=== PATIENT | female | born 1965 | race Caucasian/White ===

== ENCOUNTER → 2016-11-20 12:42 | Outpatient (CLI) | payer OTHER ==
[~2016-11-20 12:42] MED LIST: ATIVAN0.5 MG PO; FISH OIL 1,0001 CA1 PO; GEMFIBROZIL600 MG PO; LIPITOR80 MG PO; LISINOPRIL10 MG PO; METOPROLOL TART50 MG PO; NEURONTIN 300300 MG PO; PLAVIX75 MG PO; TRADJENTA5 MG PO
[2016-12-25 08:15] VITALS: BMI 21.5
== END | disposition home or self-care (01) ==
LOC: D.CT 12:42
DX: I70.211 Atherosclerosis of native arteries of extremities with intermittent claudication, right leg (principal)

== ENCOUNTER 2016-12-10 05:26 | Outpatient (CLI) | payer MEDICARE, MEDICAID ==
[~2016-12-10] VITALS: Ht 177.8 cm; Wt 68.2 kg
--- NOTE | ~2016-12-10 | HEMODYNAMI ---
PATIENT:STEPAN AHUJA MEDICAL RECORD: [id number] : 61 LOCATION:SUE ADMISSION DATE: 12/10/16 Generatedon:12/10/20169:43 Patient name: STEPAN AHUJA Patient #: [id number] SSN: D OB: 1965 Date of study: 12/10/2016 Page: Of Hemodynamic Procedure Report Patient Data Patient Demographics Procedure consent was obtained First Name: STEPAN Gender: Female Last Name: LEIGHA : 1965 Middle Initial: ANA MARIA Age: 51 year(s) Patient #: [id number] Race: Unknown Additional ID: [id number] Contact details [address]: [address] [place] [address] State: [place] City: [place] Zip code: [address] Past Medical History Allergies Allergen Reaction Date Comments Reported Aspirin 12/10/2016 Sulfa drugs 12/10/2016 Admission Admission Data Admission Date: 12/10/2016 Admission Time: 5:26 Weight (lbs.): 150 Weight (kg.): 68.04 Procedure Procedure Types Cath Procedure Peripheral Cath Diagnostic Procedure Abd/Extremity Extremities Right Lower Ext Arterio Procedure Description Procedure Date Procedure Date: 12/10/2016 Procedure Start Time: 8:15 Procedure Staff Name Function Chris Odom MD Performing Physician Joshua Wang RT Scrub Racheal Jones RN Nurse Silvana Gan RT Cigar Head Pegger Silvana Gan RT Monitor Procedure Data Cath Procedure Fluoroscopy Diagnostic fluoroscopy Total fluoroscopy Time: time: 14.6 min 14.6 min Diagnostic fluoroscopy Total fluoroscopy dose: 586 dose: 586 mGy mGy Contrast Material Contrast Material Type Amount (ml) Isovue 300 75 Entry Location Entry Primary Successful Side Size Upsize Upsize Entry Closure Succes sful Closure Location (Fr) 1 (Fr) 2 (Fr) Remarks Device Remarks Femoral Left 5 Fr artery Femoral Exoseal artery Diagnostic catheters Device Type Used For End Catheter Placement Diagnostic 5Fr IMT Catheter Procedure Medications Medication Administration Route Dosage Versed I.V. 1 mg Fentanyl I.V. 50 mcg Versed I.V. 1 mg Fentanyl I.V. 50 mcg Versed I.V. 1 mg Fentanyl I.V. 50 mcg Benadryl I.V. 50 mg Heparin Bolus I.V. 4000 units Versed I.V. 1 mg Fentanyl I.V. 50 mcg Lidocaine 1% added to field 20 Heparin Flush Bag added to field 3 bags (1000units/500ml NS) Oxygen NC 3 l/min Nitroglycerin IC/IA I.A. 200 mcg Fentanyl I.V. 50 mcg Versed I.V. 1 mg Fentanyl I.V. 50 mcg Versed I.V. 1 mg Hemodynamics Rest Heart Rate: 62 (bpm) Snapshots Pre Cath Intra NCS Post Cath Vital Signs Time Heart Resp SPO2 NIBP (mmHg) Rhythm Pain Status Sedation Rate (ipm) (%) Level (bpm) 7:50:19 63 11 98 179/88(141) NSR 0 (11) , No 10(A) pain 7:54:33 67 15 98 182/91(138) NSR 0 (11) , No 10(A) pain 7:59:32 70 12 97 Measuring NSR 0 (11) , No 10(A) pain 7:59:46 67 12 96 171/91(149) NSR 0 (11) , No 10(A) pain 8:04:06 65 13 96 168/85(135) NSR 0 (11) , No 10(A) pain 8:08:24 65 13 96 159/83(128) NSR 0 (11) , No 10(A) pain 8:12:41 65 11 94 155/80(126) NSR 6 (11) , 10(A) Intense 8:16:57 67 16 94 136/79(102) NSR 5 (11) , 10(A) Very distressing 8:21:06 61 12 94 132/74(105) NSR 5 (11) , 10(A) Very distressing 8:25:16 64 12 97 134/69(106) NSR 5 (11) , 9(A) Very distressing 8:29:26 54 14 96 113/69(104) NSR 3 (11) , 9(A) Tolerable 8:33:32 58 13 95 94/60(69) NSR 0 (11) , No 9(A) pain 8:37:34 53 12 98 92/51(61) NSR 0 (11) , No 9(A) pain 8:41:38 53 14 98 70/46(55) NSR 0 (11) , No 9(A) pain 8:43:49 58 12 98 97/52(75) NSR 0 (11) , No 9(A) pain 8:47:52 53 11 98 115/56(90) NSR 0 (11) , No 9(A) pain 8:52:00 51 14 98 111/59(82) NSR 0 (11) , No 9(A) pain 8:56:06 50 15 100 115/62(82) NSR 0 (11) , No 9(A) pain 9:00:12 50 14 97 99/62(81) NSR 0 (11) , No 9(A) pain 9:04:11 50 12 99 110/64(94) NSR 0 (11) , No 9(A) pain 9:08:15 48 13 100 120/67(102) NSR 5 (11) , 9(A) Very distressing 9:12:21 51 13 98 119/66(96) NSR 0 (11) , No 9(A) pain 9:16:25 48 11 99 126/70(105) NSR 0 (11) , No 9(A) pain 9:20:33 49 10 100 126/67(102) NSR 0 (11) , No 9(A) pain 9:25:31 56 15 99 121/64(0) NSR 0 (11) , No 9(A) pain 9:25:40 56 14 99 129/73(105) NSR 0 (11) , No 9(A) pain 9:29:54 51 11 98 107/56(76) NSR 0 (11) , No 9(A) pain 9:33:59 48 21 98 87/55(66) NSR 0 (11) , No 9(A) pain 9:37:59 48 12 97 91/50(66) NSR 0 (11) , No 9(A) pain 9:42:01 49 15 97 91/49(66) NSR 0 (11) , No 9(A) pain Medications Time Medication Route Dose Verified Delivered Reason Notes Effectiveness by by 8:00:22 Heparin Flush added 3 Racheal Racheal used for Bag to bags King BRENDA Jones health occupations teacher (1000units/500ml field NS) 8:00:36 Lidocaine 1% added 20ml Racheal Racheal for local to vial King BRENDA Jones RN anesthetic field 8:05:50 Oxygen NC 3 Racheal Racheal Per protocol l/min King BRENDA Jones RN 8:06:55 Fentanyl I.V. 50 Racheal Racheal for sedation mcg King BRENDA Jones RN 8:07:00 Versed I.V. 1 mg Racheal Racheal for sedation King BRENDA Jones RN 8:11:49 Versed I.V. 1 mg Racheal Racheal for sedation King BRENDA Jones RN 8:11:58 Fentanyl I.V. 50 Racheal Racheal for sedation mcg King BRENDA Jones RN 8:18:03 Versed I.V. 1 mg Racheal Racheal for sedation King BRENDA Jones RN 8:18:14 Fentanyl I.V. 50 Racheal Racheal for sedation mcg King BRENDA Jones RN 8:23:49 Versed I.V. 1 mg Racheal Racheal for sedation King BRENDA Jones RN 8:23:55 Fentanyl I.V. 50 Racheal Racheal for sedation mcg King BRENDA Jones RN 8:24:01 Benadryl I.V. 50 mg Racheal Racheal for sedation King BRENDA Jones RN 8:29:02 Heparin Bolus I.V. 4000 Racheal Racheal for units King BRENDA Jones RN anticoagulation 8:58:22 Nitroglycerin I.A. 200 Racheal Chris IC/IA mcg Robert BRENDA Odom MD 9:12:00 Fentanyl I.V. 50 Racheal Racheal for sedation mcg King BRENDA Jones RN 9:12:13 Versed I.V. 1 mg Racheal Racheal for sedation King BRENDA Jones RN 9:24:40 Fentanyl I.V. 50 Racheal Racheal for sedation [facility] King BRENDA Jones RN 9:25:48 Versed I.V. 1 mg Racheal Racheal for sedation King BRENDA Jones deputy commissioner Log Time Note 7:41:19 Patient Weight : 150 kg 7:41:51 Time tracking: Regular hours 7:42:32 Plan of Care:Hemodynamics will remain stable., Cardiac rhythm will remain stable., Comfort level will be maintained., Respiratory function will remain adequate., Patient/ family verbilizes understanding of procedure., Procedure tolerated without complication., Recovers from procedure without complications.. 7:45:56 Use device set IR Diagnostic 7:45:58 Sterile Angiographic Pack opened to sterile field. 7:45:59 Bag Decanter opened to sterile field. 7:46:01 Acist Manifold opened to sterile field. 7:46:02 Acist Hand Control opened to sterile field. 7:46:03 Acist Syringe opened to sterile field. 7:46:04 Cook BENTSON 145cm guide wire opened to sterile field. 7:46:05 St Jose 5FR Sheath opened to sterile field. 7:46:06 Micropuncture VSI 4FR kit opened to sterile field. 7:46:45 Patient received from Outpatients to IR Alert and oriented. Tansferred to table in Supine position. 7:46:48 Correct patient and procedure confirmed by team. 7:46:51 Signed procedure consent form obtained from patient. 7:46:53 7:47:00 H&P Date Dictated: 12/10/2016 Within 30 days and on chart.. 7:47:03 Pre-procedure instructions explained to patient. 7:47:03 Pre-op teaching completed and patient verbalized understanding. 7:47:06 Family in waiting room. 7:47:08 Patient NPO since Midnight. 7:47:27 Patient allergic to Aspirin 7:47:54 Patient allergic to Sulfa drugs 7:48:02 Is the patient allergic to Iodine/contrast media? No. 7:48:06 Is patient on blood thinner?No 7:48:12 Patient diabetic? No. 7:48:27 7:48:29 ----Pre-sedation anethsthesia assessment.---- 7:48:33 Previous problem with sedation/anesthesia? No ? 7:48:37 Snore? Yes 7:48:39 Sleep apnea? No 7:48:41 Deviated septum? No 7:48:44 Opens mouth fully? Yes 7:48:47 Sticks out tongue? Yes 7:48:51 Airway obstruction? No ? 7:48:55 Dentures? No ? 7:48:59 7:49:09 ECG and BP/O2 sat monitors applied to patient. 7:49:11 Vital chart was started 7:49:13 Baseline sample Acquired. 7:49:16 Full Disclosure recording started 7:49:17 7:49:31 IV patent on arrival in left forearm with 0.9% NaCl at [facility]. 7:49:42 Left groin area was prepped with chlora-prep and draped in sterile fashion 7:51:02 Pre procedure: right dorsailis pedis pulse 0-Absent 7:51:08 Pre procedure: left dorsailis pedis pulse Doppler 7:51:15 Pre procedure: right posterior tibial pulse Doppler 7:51:22 Pre procedure: left posterior tibial pulse Doppler 8:00:22 Heparin Flush Bag (1000units/500ml NS) 3 bags added to field was given by Racheal Jones RN; used for procedure; 8:00:36 Lidocaine 1% 20ml vial added to field was given by Racheal Jones RN; for local anesthetic; 8:05:50 Oxygen 3 l/min NC was given by Racheal Jones RN; Per protocol; 8:06:18 A Diagnostic 5Fr IMT Catheter was advanced over the wire and used for . 8:06:38 Alarms reviewed by R. N. 8:06:39 Sharps counted by scrub and verified by Иван 8:06:39 8:06:41 Physician arrived 8:06:55 Fentanyl 50 mcg I.V. was given by Racheal Jones RN; for sedation; 8:07:00 Versed 1 mg I.V. was given by Racheal Jones RN; for sedation; 8:10:26 --------ALL STOP TIME OUT------ 8:10:27 Final Timeout: patient, procedure, and site verified with staff and physician. All members of the team are in agreement. 8:11:17 Sedation plan: IV Moderate Sedation Versed, Fentanyl 8:11:38 Physical assessment completed. ASA score P 2 - A patient with mild systemic disease as per Chris Odom MD. 8:11:49 Versed 1 mg I.V. was given by Racheal Jones RN; for sedation; 8:11:58 Fentanyl 50 mcg I.V. was given by Racheal Jones RN; for sedation; 8:15:03 Procedure started. 8:15:09 Local anesthetic to left femerol artery with Lidocaine 1% by Chris Odom MD.INITIAL ACCESS ONLY 8:15:41 Arterial access obtained using ultrasound guidance. 8:15:56 A 5 Fr sheath was inserted into the Left Femoral artery 8:18:03 Versed 1 mg I.V. was given by Racheal Jones RN; for sedation; 8:18:14 Fentanyl 50 mcg I.V. was given by Racheal Jones RN; for sedation; 8:23:49 Versed 1 mg I.V. was given by Racheal Jones RN; for sedation; 8:23:55 Fentanyl 50 mcg I.V. was given by Racheal Jones RN; for sedation; 8:24:01 Benadryl 50 mg I.V. was given by Racheal Jones RN; for sedation; 8:29:02 Heparin Bolus 4000 units I.V. was given by Racheal Jones RN; for anticoagulation; 8:30:53 Terumo 6Fr Edwards Destination Sheath opened to sterile field. 8:30:53 Cook BRIDGES 260 guide wire opened to sterile field. 8:30:[address] .035 145 glide wire opened to sterile field. 8:30:55 CXI Catheter 90cm opened to sterile field. 8:52:16 [place] Sci Choice PT Floppy Straight 300cm 0.014 g opened to sterile field. 8:52:27 Turbohawk 1 Small Atherectomy catheter opened to sterile field. 8:54:11 BasixTOUCH Inflation Syringe opened to sterile field. 8:58:22 Nitroglycerin IC/IA 200 mcg I.A. was given by Chris Odom MD; ; 9:12:00 Fentanyl 50 mcg I.V. was given by Racheal Jones RN; for sedation; 9:12:13 Versed 1 mg I.V. was given by Racheal Jones RN; for sedation; 9:18:55 Inflation number: 1 A IN.PACT Admiral 5.0 x 120 x 135 DCB Balloon was prepped and advanced across the Undefined1, then inflated to 10 SREEKANTH for 2:09 (min:sec). 9:24:40 Fentanyl 50 mcg I.V. was given by Racheal Jones RN; for sedation; 9:25:48 Versed 1 mg I.V. was given by Racheal Jones RN; for sedation; 9:29:35 St Ojse 6Fr sheath opened to sterile field. 9:31:36 Cordis 6Fr Exoseal opened to sterile field. 9:34:50 Sheath removed intact; hemostasis achieved with Exoseal to the Femoral artery. 9:34:50 A sheath was inserted into the Femoral artery 9:35:00 Procedure ended.(Physican Out) 9:35:20 Fluoroscopy time 14.60 minutes. 9:35:26 Fluoroscopy dose: 586 mGy 9:35:26 Flurop Dose total: 586 9:35:47 Contrast amount:Isovue 300 75ml. 9:35:49 Procedure and supply charges have been captured, reviewed, submitted and are correct. 9:40:18 Report given to Outpatients. 9:40:21 Patient transfered to Outpatients with Bed. 9:43:47 Vital chart was stopped Intervention Summary Intervention Notes Time ActionType Lesion and Equipment Action# Pressure Duration Attributes Used 9:18:55 Inflate Undefined1 IN.PACT 1 10 02:09 balloon Admiral 5.0 x 120 x 135 DCB Balloon Device Usage Item Name Manufacture Quantity Catalog Number [facility] Lot# / Charge Number Stock Stock Serial# Code Sterile Cardinal 1 [id number] 5 Angiographic Health Pack Bag Decanter Microtek 1 2002S 305206 11910 364837 5 Medical Inc. Acist Acist 1 99939 585641 886437 175798 5 Manifold Medical Systems Inc Acist Hand Acist 1 14643 788399 867075 749647 5 Control Medical Systems Inc Acist Syringe Acist 1 44661 585002 091170 750393 20 Medical Systems Inc [facility] Friendly Wager App [facility] 1 [id number] 156141 791499 [id number] wire [address] Jose 5FR St Jose 1 879635 388476 088242 5 [id number] Sheath Micropuncture VSI VASCULAR 1 7266V 327866 064734 5 VSI 4FR kit SOLUTIONS [facility] [place] 1 [id number] 709611 603723 63370 5 5Fr IMT Scientific Catheter Terumo 6Fr Terumo 1 RSR01 271065 87480 940807 5 Edwards Destination Sheath Friendly Wager App [facility] Friendly Wager App [facility] 1 [id number] 790545 482565 5 [id number] 260 guide wire [facility] 1 A54080 815139 237647 5 [id number] ROADRUNNER .035 145 glide wire CXI Catheter Friendly Wager App [facility] 1 U32156 568940 132161 479319 5 [id number] 90cm [place] [facility] [place] 1 [id number] 689834 330360 637649 5 Choice PT Scientific Floppy Straight 300cm 0.014 g Turbohawk 1 Ev3 1 H1-S 349133 3346695 712150 5 Small Atherectomy catheter BasixTOUCH Merit 1 AN7103 062994 665998 956255 5 [id number] Inflation Medical Syringe IN.PACT Medtronic 1 [id number] 767996 918015 183969 5 Admiral 5.0 x 120 x [address] Jose [address] St Jose 1 437560 107199 496443 5 [id number] sheath Cordis 6Fr Cardinal 1 EX600 418663 335675 264405 10 [id number] [facility] Signature Audit [place] Stage Time Signature Unsigned Intra-Procedure 12/10/2016 Joshua 9:43:44 AM Kathleen RT (R) (CV) Signatures Monitor : Silvana Gan RT Signature : Date : Time : [place] [id number] [place] [address]
[2016-12-10] MEDS ORDERED: GEMFIBROZIL600 MG PO (06:25)
[2016-12-10] MEDS ORDERED: METOPROLOL TART50 MG PO (06:26)
[2016-12-10] MEDS ORDERED: LIPITOR80 MG PO (06:26)
[2016-12-10] MEDS ORDERED: TRADJENTA5 MG PO (06:26)
[2016-12-10] MEDS ORDERED: NEURONTIN 300300 MG PO (06:27)
[2016-12-10] MEDS ORDERED: LISINOPRIL10 MG PO (06:27)
[2016-12-10] MEDS ORDERED: FISH OIL 1,0001 CA1 PO (06:28)
[2016-12-10] MEDS ORDERED: ATIVAN0.5 MG PO (06:28)
[2016-12-10 06:36] LABS: BASOPHILS 0.3 % (0.0-2.0); EOSINOPHILS 6.3 % (0-7); HEMATOCRIT 35.9 % (36.0-48.0); HEMOGLOBIN 11.9 g/dL (12-16); IMMATURE GRANULOCYTES 0.4 % (0-5); LYMPHOCYTES 39.1 % (15-50); MCH 30.4 pg (26.0-34.0); MCHC 33.1 g/dL (31.0-37.0); MCV 91.6 fL (80.0-100.0); MEAN PLATELET VOLUME 9.7 fL (7.4-10.4); MONOCYTES 7.2 % (2-11); NEUTROPHILS 46.7 % (40-80); PLATELET COUNT 264 10x3/uL (130-400); RBC 3.92 10x6/uL (4.00-5.40); RDW 14.8 % (11.5-14.5); WBC 9.9 10x3/uL (4.8-10.8)
[2016-12-10 06:37] VITALS: BP 127/64; Ht 177.8 cm; Wt 68.2 kg
[2016-12-10 06:52] LABS: APTT 27.8 SECONDS (22.8-39.4); INR 1.02 (0.85-1.17); PROTIME 13.3 SECONDS (11.6-15.0)
[2016-12-10 06:53] LABS: ANION GAP 15.4 mmol/L (8-16); CALCIUM 9.8 mg/dL (8.5-10.1); CARBON DIOXIDE 23.8 mmol/L (21.0-32.0); CREATININE - SERUM 0.9 mg/dL (0.6-1.3); POTASSIUM - SERUM 5.2 mmol/L (3.5-5.1)
--- NOTE | 2016-12-10 10:50 | NUR ---
1000 SEE POST PROCEDURE SHEET FOR ALL VITAL SIGNS
== END 2016-12-10 14:15 | disposition home or self-care (01) ==
LOC: D.OPS 05:26 → D.SP 08:00 → D.OPS 08:00
PROVIDERS: Radiology Diagnostic Radiology
DX: I70.211 Atherosclerosis of native arteries of extremities with intermittent claudication, right leg (principal)

== ENCOUNTER 2016-12-25 06:41 | Outpatient (CLI) | payer MEDICARE, MEDICAID ==
[~2016-12-25] VITALS: Ht 177.8 cm; Wt 68.2 kg
--- NOTE | ~2016-12-25 | HEMODYNAMI ---
PATIENT:STEPAN AHUJA MEDICAL RECORD: [id number] : 61 LOCATION:SUE ADMISSION DATE: 12/25/16 Generatedon:12/25/201611:34 Patient name: STEPAN AHUJA Patient #: [id number] SSN: D OB: 1965 Date of study: 12/25/2016 Page: Of Hemodynamic Procedure Report Patient Data Patient Demographics Procedure consent was obtained First Name: STEPAN Gender: Female Last Name: LEIGHA : 1965 Middle Initial: ANA MARIA Age: 51 year(s) Patient #: [id number] Race: Unknown Additional ID: [id number] Contact details [address]: [address] [place] [address] State: [place] City: [place] Zip code: [address] Past Medical History Allergies Allergen Reaction Date Comments Reported Aspirin 12/10/2016 Sulfa drugs 12/10/2016 Aspirin 12/25/2016 Sulfa drugs 12/25/2016 Admission Admission Data Admission Date: 12/25/2016 Admission Time: 6:41 Weight (lbs.): 150 Weight (kg.): 68.04 Procedure Procedure Types Cath Procedure Peripheral Cath Diagnostic Procedure Cath Peripheral Abd/Extremity Extremities Left Lower Ext Arterio Procedure Description Procedure Date Procedure Date: 12/25/2016 Procedure Start Time: 10:01 Procedure Staff Name Function Chris Odom MD Performing Physician Joshua Wang RT Scrub Racheal Jones RN Nurse Kimberly Arnold RN Nurse Silvana Gan RT Monitor Procedure Data Cath Procedure Fluoroscopy Diagnostic fluoroscopy Total fluoroscopy Time: time: 13.5 min 13.5 min Diagnostic fluoroscopy Total fluoroscopy dose: 173 dose: 173 mGy mGy Contrast Material Contrast Material Type Amount (ml) Isovue 300 55 Entry Location Entry Primary Successful Side Size Upsize Upsize Entry Closure Succes sful Closure Location (Fr) 1 (Fr) 2 (Fr) Remarks Device Remarks Femoral Right 5 Fr artery Femoral Mynx artery Resistor Inspector 6Fr/7Fr Diagnostic catheters Device Type Used For End Catheter Placement Diagnostic 5Fr IMT Catheter Procedure Medications Medication Administration Route Dosage Fentanyl I.V. 50 mcg Versed I.V. 1 mg Fentanyl I.V. 50 mcg Versed I.V. 1 mg Versed I.V. 1 mg Fentanyl I.V. 50 mcg Benadryl I.V. 50 mg Heparin Bolus I.V. 4000 units Nitroglycerin IC/IA I.A. 200 mcg Fentanyl I.V. 50 mcg Versed I.V. 1 mg Fentanyl I.V. 25 mcg Fentanyl I.V. 25 mcg Hemodynamics Rest Heart Rate: 57 (bpm) Snapshots Pre Cath Intra NCS Post Cath Vital Signs Time Heart Resp SPO2 NIBP (mmHg) Rhythm Pain Status Sedation Rate (ipm) (%) Level (bpm) 9:46:46 61 14 98 147/74(113) NSR 0 (11) , No 10(A) pain 9:51:51 56 11 100 136/72(110) NSR 0 (11) , No 10(A) pain 9:56:01 58 12 100 147/71(115) NSR 0 (11) , No 10(A) pain 10:00:15 58 21 100 139/70(122) NSR 0 (11) , No 10(A) pain 10:04:31 66 16 100 137/66(109) NSR 0 (11) , No 10(A) pain 10:08:37 64 17 99 141/83(96) NSR 0 (11) , No 10(A) pain 10:12:48 58 13 96 101/61(81) NSR 0 (11) , No 10(A) pain 10:16:52 54 12 97 99/50(66) NSR 0 (11) , No 10(A) pain 10:20:58 53 14 97 85/43(58) NSR 0 (11) , No 10(A) pain 10:24:56 52 11 99 95/53(73) NSR 0 (11) , No 9(A) pain 10:28:55 54 12 98 94/56(72) NSR 0 (11) , No 9(A) pain 10:32:57 53 16 97 81/46(73) NSR 0 (11) , No 9(A) pain 10:36:57 52 11 96 82/39(59) NSR 0 (11) , No 9(A) pain 10:40:56 52 12 97 80/42(71) NSR 0 (11) , No 9(A) pain 10:44:58 50 11 96 69/39(57) NSR 0 (11) , No 9(A) pain 10:46:51 50 11 97 83/38(60) NSR 0 (11) , No 9(A) pain 10:50:50 51 11 97 86/42(53) NSR 3 (11) , 9(A) Tolerable 10:55:49 66 16 96 Measuring NSR 5 (11) , 9(A) Very distressing 10:55:51 66 16 96 104/62(79) NSR 7 (11) , 9(A) Very intense 10:59:53 55 14 99 115/64(75) NSR 5 (11) , 9(A) Very distressing 11:03:57 56 12 100 125/66(111) NSR 3 (11) , 10(A) Tolerable 11:08:07 55 11 96 116/60(92) NSR 0 (11) , No 10(A) pain 11:13:04 58 12 98 124/72(84) NSR 0 (11) , No 10(A) pain 11:17:09 51 14 99 120/63(92) NSR 0 (11) , No 10(A) pain 11:21:11 50 12 99 129/73(93) NSR 0 (11) , No 10(A) pain 11:25:19 55 13 100 124/67(93) NSR 0 (11) , No 10(A) pain 11:29:29 55 12 98 118/58(79) NSR 0 (11) , No 10(A) pain Medications Time Medication Route Dose Verified Delivered Reason Notes Ef fectiveness by by 9:59:11 Versed I.V. 1 mg Kimberly Kimberly for sedation Catalina Arnold RN RN 9:59:50 Fentanyl I.V. 50 Kimberly Kimberly for sedation mcg Catalina Arnold RN RN 10:04:11 Fentanyl I.V. 50 Kimberly Kimberly for sedation mcg Catalina Arnold RN RN 10:04:25 Versed I.V. 1 mg Kimberly Kimberly for sedation Catalina Arnold RN RN 10:13:29 Versed I.V. 1 mg Kimberly Kimberly for sedation Catalina Arnold RN RN 10:13:31 Fentanyl I.V. 50 Kimberly Kimberly for sedation mcg Catalina Arnold RN RN 10:14:42 Benadryl I.V. 50 mg Kimberly Kimberly for sedation Catalina Arnold RN RN 10:15:25 Heparin Bolus I.V. 4000 Kimberly Kimberly for units Catalina Arnold anticoagulation RN RN 10:22:06 Fentanyl I.V. 50 Kimberly Kimberly for sedation mcg Catalina Arnold RN RN 10:22:34 Versed I.V. 1 mg Kimberly Kimberly for sedation Catalina Arnold RN RN 10:31:27 Nitroglycerin I.A. 200 Chris Chris for IC/IA mcg Ilene snow MD, MD 10:58:00 Fentanyl I.V. 25 Kimberly Kimberly for sedation mcg Catalina Arnold RN RN 11:03:47 Fentanyl I.V. 25 Kimberly Kimberly for sedation mcg Catalina Arnold RN aquaculture program director Log Time Note :43:07 Patient Weight : 150 kg 9:43:28 Time tracking: Regular hours 9:43:53 Plan of Care:Hemodynamics will remain stable., Cardiac rhythm will remain stable., Comfort level will be maintained., Respiratory function will remain adequate., Patient/ family verbilizes understanding of procedure., Procedure tolerated without complication., Recovers from procedure without complications.. 9:44:01 Patient received from Outpatients to IR Alert and oriented. Tansferred to table in Supine position. :44:07 Warm blankets applied, and merlin hugger turned on for patient comfort. :44:07 Correct patient and procedure confirmed by team. 9:44:09 Signed procedure consent form obtained from patient. 9:44:20 - 9:44:24 Terumo 6Fr [place] Destination Sheath opened to sterile field. 9:44:26 Use device set IR Diagnostic 9:44:51 Reji BRIDGES 260 guide wire opened to sterile field. 9:44:52 St Jose 5FR Sheath opened to sterile field. 9:44:53 Micropuncture VSI 4FR kit opened to sterile field. 9:44:53 Reji NAIR 145cm guide wire opened to sterile field. 9:44:54 Sterile Angiographic Pack opened to sterile field. 9:44:55 Bag Decanter opened to sterile field. 9:45:48 H&P Date Dictated: 12/25/2016 Within 30 days and on chart.. 9:45:51 Pre-procedure instructions explained to patient. 9:45:52 Pre-op teaching completed and patient verbalized understanding. 9:45:54 Family in waiting room. 9:45:56 Patient NPO since Midnight. 9:46:11 Patient allergic to Aspirin 9:46:22 Patient allergic to Sulfa drugs 9:46:30 Is the patient allergic to Iodine/contrast media? No. 9:46:33 Is patient on blood thinner?Yes 9:46:38 Patient diabetic? Yes. 9:46:40 - 9:46:42 ----Pre-sedation anethsthesia assessment.---- 9:46:46 Previous problem with sedation/anesthesia? No ? 9:46:50 Snore? Yes 9:46:52 Sleep apnea? No 9:46:54 Deviated septum? No 9:46:57 Opens mouth fully? Yes 9:46:59 Sticks out tongue? Yes 9:47:02 Airway obstruction? No ? 9:47:06 Dentures? No ? 9:47:09 - 9:47:19 IV patent on arrival in right forearm with 0.9% NaCl at [facility]. 9:47:27 Pre procedure: right dorsailis pedis pulse 2+ Normal; easily identifiable; not easily obliterated 9:47:33 Pre procedure: left dorsailis pedis pulse Doppler 9:47:53 Pre procedure: right posterior tibial pulse Doppler 9:47:58 Pre procedure: left posterior tibial pulse Doppler 9:50:33 Right groin area was prepped with chlora-prep and draped in sterile fashion 9:50:36 Alarms reviewed by Halima NRobert 9:50:37 Sharps counted by scrub and verified by RRobertNRobert 9:50:39 - 9:50:46 ECG and BP/O2 sat monitors applied to patient. 9:50:47 Vital chart was started 9:50:48 Baseline sample Acquired. 9:50:50 Full Disclosure recording started 9:50:51 - 9:58:58 Physician arrived 9:59:11 Versed 1 mg I.V. was administered by Kimberly Arnold RN; for sedation; 9:59:50 Fentanyl 50 mcg I.V. was administered by Kimberly Arnold RN; for sedation; 10:00:20 --------ALL STOP TIME OUT------ 10:00:22 Final Timeout: patient, procedure, and site verified with staff and physician. All members of the team are in agreement. 10:00:35 Physical assessment completed. ASA score P 3 - A patient with severe systemic disease as per Chris Odom MD. 10:00:43 Sedation plan: IV Moderate Sedation Versed, Fentanyl 10:01:03 Procedure started. 10:01:09 Local anesthetic to right femoral artery with Lidocaine 1% by Chris Odom MD.INITIAL ACCESS ONLY 10:01:12 Arterial access obtained using ultrasound guidance. 10:03:41 A 5 Fr sheath was inserted into the Right Femoral artery 10:04:11 Fentanyl 50 mcg I.V. was administered by Kimberly Arnold RN; for sedation; 10:04:25 Versed 1 mg I.V. was administered by Kimberly Arnold RN; for sedation; 10:13:29 Versed 1 mg I.V. was administered by Kimberly Arnold RN; for sedation; 10:13:31 Fentanyl 50 mcg I.V. was administered by Kimberly Arnold RN; for sedation; 10:13:34 Cook HealogicaRUNNER 260 .035 glide wire opened to sterile field. 10:13:49 A Diagnostic 5Fr IMT Catheter was advanced over the wire and used for . 10:14:42 Benadryl 50 mg I.V. was administered by Kimberly Arnold RN; for sedation; 10:15:25 Heparin Bolus 4000 units I.V. was administered by Kimberly Arnold RN; for anticoagulation; 10:18:12 CXI Catheter 90cm opened to sterile field. 10:22:06 Fentanyl 50 mcg I.V. was administered by Kimberly Arnold RN; for sedation; 10:22:34 Versed 1 mg I.V. was administered by Kimberly Arnold RN; for sedation; 10:25:45 [place] Sci Choice PT Floppy Straight 300cm 0.014 g opened to sterile field. 10:27:49 Turbohawk 1 Small Atherectomy catheter opened to sterile field. 10:31:27 Nitroglycerin IC/IA 200 mcg I.A. was administered by Chris Odom MD; for vasodilation; 10:51:50 BasixTOUCH Inflation Syringe opened to sterile field. 10:56:33 Inflation number: 1 A IN.PACT Admiral 5 x 150 balloon was prepped and advanced across the Undefined1, then inflated to 12 SREEKANTH for 3:14 (min:sec). 10:58:00 Fentanyl 25 mcg I.V. was administered by Kimberly Arnold RN; for sedation; 11:03:11 Inflation number: 1 A IN.PACT Admiral 5.0 x 120 x 135 DCB Balloon was prepped and advanced across the Undefined2, then inflated to 12 SREEKANTH for 4:52 (min:sec). 11:03:47 Fentanyl 25 mcg I.V. was administered by Kimberly Arnold RN; for sedation; 11:07:30 St Jose 6Fr sheath opened to sterile field. 11:13:21 Inflation number: 1 A IN.PACT Admiral 5.0 x 80 x 135 DCB Balloon was prepped and advanced across the Undefined3, then inflated to 10 SREEKANTH for 3:31 (min:sec). 11:21:05 MYNX CLAMP FORKLIFT OPERATOR 6FR/7FR opened to sterile field. 11:21:36 A sheath was inserted into the Femoral artery 11:21:36 Sheath removed intact; hemostasis achieved with Mynx Resistor Inspector 6Fr/7Fr to th e Femoral artery. 11:23:47 Procedure ended.(Physican Out) 11:23:54 Fluoroscopy time 13.50 minutes. 11:24:07 Fluoroscopy dose: 173 mGy 11:24:07 Flurop Dose total: 173 11:24:13 Contrast amount:Isovue 300 55ml. 11:24:16 Sharps counted by scrub and verified by R.N. 11:24:34 Procedure and supply charges have been captured, reviewed, submitted an d are correct. 11:27:49 Post Procedure Pulses reassessed and unchanged 11:34:19 Vital chart was stopped Intervention Summary Intervention Notes Time ActionType Lesion and Equipment Action# Pressure Duration Attributes Used 10:56:33 Inflate Undefined1 IN.PACT 1 12 03:14 balloon Admiral 5 x 150 balloon 11:03:11 Inflate Undefined2 IN.PACT 1 12 04:52 balloon Admiral 5.0 x 120 x 135 DCB Balloon 11:13:21 Inflate Undefined3 IN.PACT 1 10 03:31 balloon Admiral 5.0 x 80 x 135 DCB Balloon Device Usage Item Name Manufacture Quantity Catalog Number [facility] Lot# / Charge Number Stock Stock Serial# Code [facility] 1 [id number] 105974 016045 [id number] Jose [address] St Jose 1 [id number] 602013 854044 5 [id number] Sheath Micropuncture VSI VASCULAR 1 [id number] 131715 776015 5 VSI 4FR kit SOLUTIONS [place] KOREY [facility] 1 [id number] 264960 633077 5 [id number] 145cm guide wire Sterile Cardinal 1 [id number] 548297 992580 5 Angiographic Health Pack Bag Decanter Microtek 1 2002S 980481 13283 920435 5 Medical Inc. Terumo 6Fr Terumo 1 RSR01 688450 17380 433924 5 [place] Destination Sheath Cook Cook Medical 1 [id number] 634268 759466 5 [id number] ROADRUNNER 260 .035 glide wire Diagnostic [place] 1 [id number] 105462 283813 92785 5 5Fr IMT Scientific Catheter CXI Catheter SlapVid 1 [id number] 578490 833650 522293 5 [id number] 90cm [place] Sci [place] 1 [id number] 866848 742877 712085 5 Choice PT Scientific Floppy Straight 300cm 0.014 g Turb[place]awk 1 Ev3 1 H1-S 296880 4046429 945541 5 Small Atherectomy catheter BasixTOUCH [facility] 1 [id number] 932941 239860 477217 5 Inflation Medical Syringe IN.PACT Medtronic 1 [id number] 672744 2280346 094793 5 [id number] Admiral 5 x 150 balloon IN.PACT Medtronic 1 [id number] 539694 743098 694971 5 [id number] Admiral 5.0 x 120 x [address] Jose [address] St Jose 1 [id number] 715405 251863 5 [id number] sheath IN.PACT Medtronic 1 [id number] 302741 034563 639260 5 [id number] Admiral 5.0 x 80 x 135 DCB Balloon MYNX CLAMP FORKLIFT OPERATOR Access 1 [id number] 940385 767200 5 [id number] 6FR/7FR Closure Signature Audit [place] Stage Time Signature Unsigned Intra-Procedure 12/25/2016 Silvana Gan 11:34:16 AM RT(R) Signatures Monitor : Silvana Gan RT Signature : Date : Time : [facility] [address] [place] [address]
[~2016-12-25 06:41] MED LIST changes: -PLAVIX75 MG PO
[2016-12-25] MEDS ORDERED: PLAVIX75 MG PO (08:04)
[2016-12-25 08:08] LABS: BASOPHILS 0.3 % (0.0-2.0); EOSINOPHILS 3.1 % (0-7); HEMATOCRIT 33.8 % (36.0-48.0); HEMOGLOBIN 11.5 g/dL (12-16); IMMATURE GRANULOCYTES 0.4 % (0-5); LYMPHOCYTES 30.3 % (15-50); MCH 30.7 pg (26.0-34.0); MCV 90.1 fL (80.0-100.0); MEAN PLATELET VOLUME 9.5 fL (7.4-10.4); MONOCYTES 5.5 % (2-11); NEUTROPHILS 60.4 % (40-80); PLATELET COUNT 298 10x3/uL (130-400); RBC 3.75 10x6/uL (4.00-5.40); RDW 14.7 % (11.5-14.5); WBC 10.4 10x3/uL (4.8-10.8)
[2016-12-25 08:15] VITALS: BP 89/44; Ht 177.8 cm; Wt 68.2 kg
[2016-12-25 08:22] LABS: APTT 26.6 SECONDS (22.8-39.4)
[2016-12-25 08:28] LABS: CALC OSMOLALITY 265 mosm/kg (275-300); CALCIUM 10.3 mg/dL (8.5-10.1); CARBON DIOXIDE 22.3 mmol/L (21.0-32.0); CHLORIDE - SERUM 98 mmol/L (98-107); CREATININE - SERUM 0.8 mg/dL (0.6-1.3); GLUCOSE 88 mg/dL (74-106); POTASSIUM - SERUM 4.1 mmol/L (3.5-5.1); SODIUM 133 mmol/L (136-145); UREA NITROGEN 14 mg/dL (7-18); eGFR NON AFRICAN AMERICAN 79 mL/min (90-120)
--- NOTE | 2016-12-25 12:46 | NUR ---
VS TAKEN AND PLACE ON POST OP SHEET
--- NOTE | 2016-12-25 18:35 | NUR ---
1610--IV DC'D, PT UP TO DRESS AT THIS TIME. DARLENE GUTIERREZ 1640--DISCHARGE INSTRUCTIONS GIVEN, PT VERBALIZES UNDERSTANDING. PT OFF UNIT VIA WC. DARLENE GUTIERREZ
--- NOTE | 2016-12-25 18:42 | NUR ---
1640--DISCHARGE INSTRUCTIONS GIVEN, PT VERBALIZES UNDERSTANDING. PT OFF UNIT VIA JIE. DARLENE GUTIERREZ
== END 2016-12-25 16:40 | disposition home or self-care (01) ==
LOC: D.OPS 06:41 → D.SP 09:00 → D.OPS 16:40
PROVIDERS: Radiology Diagnostic Radiology
DX: I70.212 Atherosclerosis of native arteries of extremities with intermittent claudication, left leg (principal)